=== PATIENT | female | born 1975 | race Two or more races ===

== ENCOUNTER 2024-03-16 09:59 | Outpatient (CLI) | payer OTHER | END 2024-03-16 10:19 | disposition home or self-care (01) | LOC: RAD 09:59 | PROVIDERS: ATTEND Surgery | DX: K59.09 Other constipation (principal); K58.1 Irritable bowel syndrome with constipation; K64.3 Fourth degree hemorrhoids ==

== ENCOUNTER 2024-04-01 05:25 | Day surgery (SDC) | payer OTHER ==
[2024-03-24 12:10] VITALS: BP 117/73
[2024-03-24 12:34] LABS: INR 1.01; PARTIAL THROMBOPLASTIN TIME 28.5 SECONDS (22.0-34.0)
[~2024-04-01] VITALS: Ht 170.2 cm; Wt 56.7 kg
[2024-04-01] MEDS ORDERED: BUPIVACAINE HCL/Mpf 0.5% 10ML VIAL ONE (07:07)
[2024-04-01] MEDS ORDERED: LIDOCAINE HCL 1%/EPINEPHRINE 20ML VIAL IJ ONE (07:07)
[2024-04-01] MEDS ORDERED: DIBUCAINE 30 GM TUBE ONE (07:09)
[2024-04-01] MEDS ORDERED: HEMOSTATIC MATRIX 1 KIT KIT TOP ONE (07:09)
[2024-04-01] MEDS ORDERED: METRONIDAZOLE/SODIUM CHLORIDE 500 MG/100 ML PIGGYBACK IV ONE (07:09)
[2024-04-01] MEDS ORDERED: POVIDONE-IODINE 118 ML BOTT TOP ONE ×2 (07:09→07:56)
[2024-04-01] MEDS ORDERED: CEFTRIAXONE SODIUM 2,000 MG VIAL ONE (07:09)
[2024-04-01] MEDS ORDERED: BUPIVACAINE LIPOSOME/PF 266 MG/20 ML VIAL IJ ONE (07:09)
[2024-04-01] MEDS ORDERED: CELECOXIB200 MG PO (10:08)
[2024-04-01] MEDS ORDERED: NEURONTIN300 MG PO (10:09)
[2024-04-01] MEDS ORDERED: PERCOCET 5-3251 EACH PO (10:10)
== END 2024-04-01 15:15 | disposition home or self-care (01) ==
LOC: CIR.AMB 05:25
PROVIDERS: ATTEND Surgery
DX: K64.3 Fourth degree hemorrhoids (principal); K64.4 Residual hemorrhoidal skin tags; K58.1 Irritable bowel syndrome with constipation; K59.09 Other constipation